=== PATIENT | female | born 1990 | race Caucasian/White ===

== ENCOUNTER 2019-11-14 16:37 | Emergency (ER) | payer BC, SELFPAY ==
[2019-11-14 16:46] VITALS: BP 143/99; PULSE 109; RESP 16; TEMP 37.4; O2SAT 100
--- NOTE | 2019-11-14 17:04 | ED.GENADULT ---
HPI - General Adult General Chief complaint: Upper Respiratory Infection Stated complaint: Possible Strep Time Seen by Provider: 11/14/19 17:04 Source: patient Mode of arrival: ambulatory Limitations: no limitations History of Present Illness HPI narrative: 29-year-old female patient presents to the [facility] with complaints of sore throat that started yesterday. Patient states her fevers have been as high as 100. Patient denies getting flu shot this year. Patient denies any ear pain, runny nose, stuffy nose or coughing. Denies any chest pain or shortness of breath. Patient states that she did take some Aleve yesterday for her symptoms. Patient denies or breast-feeding at this time. Related Data Home Medications Medication Instructions Recorded Confirmed Bcp 11/14/19 Allergies Allergy/AdvReac Type Severity Reaction Status Date / Time No Known Allergies Allergy Unverified 11/26/15 13:27 Review of Systems Review of Systems: Narrative: CONSTITUTIONAL: Positive subjective fever, denies chills, or sweats. EYES: Denies visual changes, redness, or discharge. ENT: Denies rhinorrhea, congestion, positive sore throat, denies otalgia. CARDIOVASCULAR: Denies chest pain, palpitations, or edema. RESPIRATORY: Denies cough or dyspnea. GASTROINTESTINAL: Denies abdominal pain, nausea, vomiting, or diarrhea. GENITOURINARY: Denies dysuria or hematuria. SKIN: Denies rash or itching. MUSCULOSKELETAL: Denies back pain, joint pain, or myalgia. NEUROLOGIC: Denies headache, numbness, or weakness. PSYCHIATRIC: Denies anxiety or depression. PMFSH Comments At the time of my signature I agree with nursing past medical history, surgical, social, and family history. There is no relevant family history pertinent to the presenting complaint. Exam Narrative: Exam Narrative: GENERAL: Well-appearing, well-nourished, and in no acute distress. HEAD: Normocephalic, atraumatic. No tenderness noted to frontal and maxillary sinuses on palpation. EYES: PERRLA and EOMI. ENT: Nares clear, no rhinorrhea or epistaxis. Mucous membranes moist. Posterior pharynx with 1+ tonsil enlargement very slight erythema. Bilateral TMs are clear no erythema or foreign bodies in the canal. NECK: Supple. No lymphadenopathy CHEST: Clear to auscultation. No respiratory distress. HEART: Regular rate and rhythm. No murmur heard. Normal peripheral pulses. ABDOMEN: Soft, nontender, nondistended, normal active bowel sounds. EXTREMITIES: Normal range of motion. No edema. SKIN: Warm, dry, no rash. NEURO: No focal deficits. Alert and oriented x3. Course Reevaluation(s) Reevaluation #1: Notify patient that she is negative today for strep. Discussed with her that this is most likely viral and she can continue taking Tylenol, ibuprofen, warm salt water gargles, hot tea with honey and using a modifier in her room at night for symptomatic relief. Discussed with patient that if her culture comes back positive in the next day or 2 she would receive a phone call from us and we will put her on antibiotics at that time. Patient verbalized understanding denies any other questions or concerns at this time. Date: 11/14/19 Time: 17:16 Vital Signs Vital signs: Vital Signs Temperature 37.4 C 11/14/19 16:46 Pulse Rate 109 H 11/14/19 16:46 Respiratory Rate 16 11/14/19 16:46 Blood Pressure 143/99 H 11/14/19 16:46 Pulse Oximetry 100 11/14/19 16:46 Temperature 37.4 C 11/14/19 16:46 Pulse Rate 109 H 11/14/19 16:46 Respiratory Rate 16 11/14/19 16:46 Blood Pressure 143/99 H 11/14/19 16:46 Pulse Oximetry 100 11/14/19 16:46 Vital signs reviewed. The patient has been informed that they may have pre-hypertension or Hypertension based on a BP reading in the department. I recommend that the patient call the primary care provider listed on their discharge instructions or a physician of their choice this week to arrange follow up for further evaluation of possi
== END 2019-11-14 17:22 | disposition home or self-care (01) ==
PROVIDERS: Emergency Provider Nurse Practitioner Family
DX: J02.8 Acute pharyngitis due to other specified organisms (principal)
CPT/HCPCS: 87081; 87804; 87880; 99203; G0463

== ENCOUNTER 2020-05-08 20:09 | Emergency (ER) | payer BC, SELFPAY ==
[2020-05-08 20:27] VITALS: BP 139/103; PULSE 106; RESP 20; TEMP 36.6; O2SAT 100
--- NOTE | 2020-05-08 20:37 | ED.SKABFB ---
HPI - Skin/Abscess/Foreign Bdy General Chief complaint: Skin/Abscess/Foreign Body Stated complaint: Bumb on leg Time Seen by Provider: 05/08/20 20:37 Source: patient Mode of arrival: ambulatory Limitations: no limitations History of Present Illness HPI narrative: Patient is a 29-year-old female who presents for evaluation of skin irritation. Patient reports she has a large bump on the inside of her right leg near her vagina. She reports tenderness. She denies fever, no nausea or vomiting. She states the sore has been there for the past 2 days. She states it is not currently draining but is very hard to touch and tender. Patient does shave in that area, no history of skin infection in the past. No vaginal discharge or bleeding. Related Data Home Medications Medication Instructions Recorded Confirmed Bcp 11/14/19 Allergies Allergy/AdvReac Type Severity Reaction Status Date / Time No Known Allergies Allergy Unverified 05/08/20 20:27 Review of Systems Review of Systems: Narrative: CONSTITUTIONAL: Denies fever CARDIOVASCULAR: Denies chest pain RESPIRATORY: Denies cough or dyspnea. GASTROINTESTINAL: Denies abdominal pain SKIN: Denies rash, reports irritation to right inner thigh MUSCULOSKELETAL: Denies back pain NEUROLOGIC: Denies headache PMF Past Medical History Medical History (Updated 05/08/20 @ 21:41 by Yael Katz MD) Anxiety Social History Social History (Updated 05/08/20 @ 21:10 by Yael Katz MD) Smoking status: Never smoker Alcohol intake: current Alcohol use details: Social Substance use: never Gender identity (if verbalized by the patient): Female Exam Narrative: Exam Narrative: GENERAL: Awake, alert, conversant HEAD: Normocephalic, atraumatic. EYES: PERRLA and EOMI. ENT: Nares clear, no rhinorrhea or epistaxis. Mucous membranes moist. NECK: Supple. CHEST: No respiratory distress, breathing even and non labored HEART: Regular rate, sinus rhythm ABDOMEN:Non distended, non tender EXTREMITIES: Normal range of motion. No edema. SKIN: Warm, dry, 3 cm x 2 cm tender, indurated, erythematous, fluctuant abscess to right inner thigh, two palpable inguinal lymph nodes, no vaginal involvement, edema or erythema NEURO:No focal deficits. Alert and oriented x3 Course Vital Signs Vital signs: Vital Signs Temperature 36.6 C 05/08/20 20:27 Pulse Rate 106 H 05/08/20 20:27 Respiratory Rate 20 05/08/20 20:27 Blood Pressure 139/103 H 05/08/20 20:27 Pulse Oximetry 100 05/08/20 20:27 Temperature 36.6 C 05/08/20 20:27 Pulse Rate 106 H 05/08/20 20:27 Respiratory Rate 20 05/08/20 20:27 Blood Pressure 139/103 H 05/08/20 20:27 Pulse Oximetry 100 05/08/20 20:27 Procedures Abscess I/D lower extremity: Date of Incision: 05/08/20 Time of Incision: 21:11 Side (if applicable): right Local Anesthetic: lidocaine 1% and with epi Amount of anesthesia used (mL): 7 Technique: incised with #11 blade Amount of fluid expressed (mL): 5 Irrigation: No Packing used?: plain I&D Results: Pus Complications: bleeding (minimal bleeding) MDM - Skin/Abscess/Foreign Bdy MDM Narrative Medical decision making narrative: Patient presenting for evaluation of irritation to her right inner thigh. The time of assessment, ABCs are intact. Vital signs are stable. Patient is quite anxious. She has a 4 cm x 2 cm abscess of the right inner thigh. It is indurated and erythematous. The patient is systemically well-appearing without signs of systemic illness such as fever, vomiting, this does not seem to track to the labial folds. There is no Bartholin gland cyst. Abscess was drained as described in the procedure note. There is purulent discharge. Will treat with Bactrim and Keflex given surrounding cellulitis and purulent discharge. Pt advised not to shave that area as that can predispose her to infection.
--- NOTE | 2020-05-08 21:26 | PC.NURSE ---
suture kit , #11 blade and iodform placed in room, Lido with epi pulled from pyxis per verbal order.
[2020-05-08] MEDS: CEPHALEXIN 500 MG CAPSULE PO (22:11)
[2020-05-08 22:12] VITALS: BP 122/84; PULSE 89; RESP 18; TEMP 36.8; O2SAT 100
== END 2020-05-08 22:12 | disposition home or self-care (01) ==
PROVIDERS: Emergency Provider Emergency Medicine
DX: L02.415 Cutaneous abscess of right lower limb (principal)
CPT/HCPCS: 10060; 99283; A9270